=== PATIENT | female | born 1955 | race Caucasian/White ===

== ENCOUNTER 2023-10-19 15:20 | Outpatient (CLI) | payer MEDICARE, OTHER, SELFPAY ==
[2023-10-23 00:04] LABS: Wormwood IgE <0.10 kU/L (<0.70)
[2023-10-23 00:29] LABS: Alternaria Tenuis IgE <0.10 kU/L (<0.70); Aspergillus Fumigatus IgE <0.10 kU/L (<0.70); Bermuda Grass IgE <0.10 kU/L (<0.70); Cat Epithelium IgE <0.10 kU/L (<0.70); Cladosporium IgE <0.10 kU/L (<0.70); Cocklebur IgE <0.10 kU/L (<0.70); Cockroach IgE <0.10 kU/L (<0.70); D Farinae IgE <0.10 kU/L (<0.70); D Pteronyssinus IgE <0.10 kU/L (<0.70); Dog Dander IgE <0.10 kU/L (<0.70); Eastern Sycamore IgE <0.10 kU/L (<0.70); Elm IgE <0.10 kU/L (<0.70); Epicoccum purpurascens IgE <0.10 kU/L (<0.70); Fusarium moniliforme, IgE <0.10 kU/L (<0.70); Giant Ragweed IgE <0.10 kU/L (<0.70); Lamb's Quarter IgE <0.10 kU/L (<0.70); Oak IgE <0.10 kU/L (<0.70); Penicillium chrysogenum IgE <0.10 kU/L (<0.70); Red Sorrel IgE <0.10 kU/L (<0.70); Rough Pigweed IgE <0.10 kU/L (<0.70); Short Ragweed IgE <0.10 kU/L (<0.70); Silver Birch IgE <0.10 kU/L (<0.70); Stemphyllium IgE <0.10 kU/L (<0.70); Timothy Grass IgE <0.10 kU/L (<0.70); Walnut Tree IgE <0.10 kU/L (<0.70)
[2023-10-23 12:05] LABS: Cottonwood IgE <0.10 kU/L (<0.70)
[2023-10-25 17:15] LABS: CLASS 0; Cedar Red IgE <0.10 kU/L (<0.35); Rhodotorula IgE <0.35 kU/L (<0.35)
== END 2023-10-19 15:21 | disposition home or self-care (01) ==
LOC: LBO 15:22
PROVIDERS: PCP Family Medicine; Visit Provider Physician Assistant
DX: J31.0 Chronic rhinitis (principal)
CPT/HCPCS: 36415; 86003